=== PATIENT | male | born 1985 | race Caucasian/White ===

== ENCOUNTER 2016-12-13 21:48 | Emergency (ER) | payer BC ==
[~2016-12-13] VITALS: Ht 182.9 cm; Wt 70.0 kg
[~2016-12-13 21:48] MED LIST: FIORIC PO; IBUP800T23 PO; OXYB5TAB PO; PHEN-426 PO
[2016-12-13 21:50] VITALS: BP 125/81; PULSE 93; RESP 16; TEMP 99.1; O2SAT 99
[2016-12-13] MEDS ORDERED: SODIUM CHLOR 0.9% 1000 ML INJ 1,000 ML IV SCH (22:10)
[2016-12-13] MEDS ORDERED: SODIUM CHLORIDE 0.9% FLUSH 10 ML FLUSH IV FLUSH PRN (22:15)
[2016-12-13] MEDS ORDERED: ONDANSETRON HCL 4 MG/2 ML VIAL IVP ONE (22:15)
[2016-12-13] MEDS ORDERED: SODIUM CHLOR 0.9% 1000 ML INJ 1,000 ML IV ONE (22:15)
[2016-12-13 22:30] VITALS: O2SAT 98
[2016-12-13 22:41] LABS: AUTOMATED NEUTROPHIL # 10.4 TH/MM3 (1.8-7.7); BASOPHIL % 0.3 % (0.0-2.0); EOSINOPHIL % 0.1 % (0.0-4.0); HEMATOCRIT 46.2 % (39.0-51.0); HEMO FLAGS DIFF FINAL; LYMPH % 4.6 % (9.0-44.0); LYMPHOCYTE # 0.5 TH/MM3 (1.0-4.8); MEAN CELL VOLUME 87.8 FL (80.0-100.0); MEAN CORPUSCULAR HEMOGLOBIN 30.3 PG (27.0-34.0); MEAN CORPUSCULAR HGB CONC 34.6 % (32.0-36.0); MONO % 4.5 % (0.0-8.0); NEUT % 90.5 % (16.0-70.0); PLATELET COUNT 241 TH/MM3 (150-450); RED BLOOD COUNT 5.27 MIL/MM3 (4.50-5.90); RED CELL DISTRIBUTION WIDTH 13.2 % (11.6-17.2); WHITE BLOOD COUNT 11.5 TH/MM3 (4.0-11.0)
[2016-12-13 23:02] LABS: BICARBONATE 28.4 MEQ/L (21.0-32.0); POTASSIUM 3.9 MEQ/L (3.5-5.1)
[2016-12-13] MEDS ORDERED: ZOFR4TAB3 SL (23:37)
--- NOTE | 2016-12-13 23:37 | PD ---
HPI Chief Complaint: GI Complaint Time Seen by Provider: 22:07 Travel History International Travel<30 days: No Contact w/Intl Traveler<30days: No Traveled to known affect area: No History of Present Illness HPI 31-year-old male came to the emergency room with moderate distress due to vomiting and diarrhea that's been going on for past 24 hours. His friend brought him to the emergency room. Patient says he feels very weak. He could not stop vomiting or diarrhea in the last episode was while he was in the waiting room. He says it's mostly water. No blood in stool or the vomit. No known sick contacts. He is otherwise a healthy person. As per the friend he has been working very hard the past couple days in warm weather. Vital signs were relatively stable. [facility] Past Medical History Narrative Medical List of his past medical, surgical, social and family history as reviewed from the nursing note. Blood Disorders: No Cancer: No Cardiovascular Problems: No Diminished Hearing: No Endocrine: No Gastrointestinal Disorders: Yes (GERD) GERD: Yes Genitourinary: Yes (kidney stones ) Immune Disorder: No Implanted Vascular Access Dvce: Yes Kidney Stones: Yes (RENAL STENT) Musculoskeletal: Yes (left ankle surgery ) Neurologic: No Psychiatric: No Reproductive: No Respiratory: No Immunizations Current: No Migraines: Yes Past Surgical History Appendectomy: Yes Body Medical Devices: pins/screws left ankle Other Surgery: Yes (appy, left ankle) Social History Alcohol Use: Yes (socially) Tobacco Use: No Substance Use: Yes (marijuana--once weekly ) Allergies-Medications (Allergen,Severity, Reaction): Coded Allergies: No Known Allergies (Verified , 12/14/16) Comments List of his allergies reviewed from the nursing note. Reported Meds & Prescriptions Reported Meds & Active Scripts Active Zofran Odt (Ondansetron Odt) 4 Mg Tab 4 Mg SL Q6HR PRN Narrative Medication List of his home medications reviewed from the nursing note. Review of Systems Except as stated in HPI: all other systems reviewed are Neg Physical Exam Narrative GENERAL: Awake, alert, moderate distress SKIN: Focused skin assessment warm/dry. HEAD: Atraumatic. Normocephalic. EYES: Pupils equal and round. No scleral icterus. No injection or drainage. ENT: No nasal bleeding or discharge. Dry mucous membrane and coated tongue NECK: Trachea midline. No JVD. CARDIOVASCULAR: Regular rate and rhythm. No murmur appreciated. RESPIRATORY: No accessory muscle use. Clear to auscultation. Breath sounds equal bilaterally. GASTROINTESTINAL: Abdomen soft, non-tender, nondistended. Hepatic and splenic margins not palpable. MUSCULOSKELETAL: No obvious deformities. No clubbing. No cyanosis. No edema. NEUROLOGICAL: Awake and alert. No obvious cranial nerve deficits. Motor grossly within normal limits. Normal speech. PSYCHIATRIC: Appropriate mood and affect; insight and judgment normal. Data Data Last Documented VS Orders Orders Basic Metabolic Panel (Bmp) (12/13/16 22:10) Complete Blood Count With Diff (12/13/16 22:10) Urinalysis - C+S If Indicated (12/13/16 22:10) Iv Access Insert/Monitor (12/13/16 22:10) Ecg Monitoring (12/13/16 22:10) Oximetry (12/13/16 22:10) Ondansetron Inj (Zofran Inj) (12/13/16 22:15) Sodium Chlor 0.9% 1000 Ml Inj (Ns 1000 M (12/13/16 22:10) Sodium Chloride 0.9% Flush (Ns Flush) (12/13/16 22:15) Sodium Chlor 0.9% 1000 Ml Inj (Ns 1000 M (12/13/16 22:15) C Diff Toxin Pcr (12/13/16 22:13) Labs Laboratory Tests Test 12/13/16 22:20 12/13/16 23:25 12/13/16 23:40 White Blood Count 11.5 TH/MM3 Red Blood Count 5.27 MIL/MM3 Hemoglobin 16.0 GM/DL Hematocrit 46.2 % Mean Corpuscular Volume 87.8 FL Mean Corpuscular Hemoglobin 30.3 PG Mean Corpuscular Hemoglobin Concent 34.6 % Red Cell Distribution Width 13.2 % Platelet Count 241 TH/MM3 Mean Platelet Volume 8.7 FL Neutrophils (%) (Auto) 90.5 % Lymphocytes (%) (Auto) 4.6 % Monocytes (%) (Auto) 4.5 % Eosinophils (%) (Auto) 0.1 % Basophils (%) (Auto) 0.3 % Neutrophils # (Auto) 10.4 TH/MM3 Lymphocytes # (Auto) 0.5 TH/MM3 Monocytes # (Auto) 0.5 TH/MM3 Eosinophils # (Auto) 0.0 TH/MM3 Basophils # (Auto) 0.0 TH/MM3 CBC Comment DIFF FINAL Differential Comment Blood Urea Nitrogen 15 MG/DL Creatinine 1.23 MG/DL Random Glucose 107 MG/DL Calcium Level 9.1 MG/DL Sodium Level 138 MEQ/L Potassium Level 3.9 MEQ/L Chloride Level 100 MEQ/L Carbon Dioxide Level 28.4 MEQ/L Anion Gap 10 MEQ/L Estimat Glomerular Filtration Rate 68 ML/MIN Urine Color LIGHT-YELLOW Urine Turbidity CLEAR Urine pH 8.0 Urine Specific [place] 1.010 Urine Protein NEG mg/dL Urine Glucose (UA) NEG mg/dL Urine Ketones 40 mg/dL Urine Occult Blood NEG Urine Nitrite NEG Urine Bilirubin NEG Urine Urobilinogen LESS THAN 2.0 MG/DL Urine Leukocyte Esterase NEG Urine RBC LESS THAN 1 /hpf Urine WBC 1 /hpf Urine Mucus FEW /lpf Microscopic Urinalysis Comment CULT NOT INDICATED Stool C. difficile Toxin (PCR) NEGATIVE Stl C. difficile Toxin Epiderm 027 PRESUMPTIVE NEGATIVE MDM Medical Decision Making Medical Screen Exam Complete: Yes Emergency Medical Condition: Yes Medical Record Reviewed: Yes Differential Diagnosis Acute gastroenteritis, food poisoning, dehydration Narrative Course 11:35 PM blood test results are back and they're within acceptable limits. Patient was given 2 L of IV fluid bolus and IV Zofran. He has not had anymore diarrhea or vomiting episode as far as I know. However the stool C. difficile has been ordered. I am comfortable discharging him home at this point. Procedures EKG Prior to Arrival: No Diagnosis Primary Impression: Acute gastroenteritis Additional Impression: Dehydration Referrals: Primary Care Physician Additional Instructions: Return to the ER if the condition worsens or any other new concerns. Take the medication as per the prescription direction. Try to stay hydrated as much as possible. Med/Other Pt SpecificInfo: Prescription(s) given Scripts Ondansetron Odt (Zofran Odt) 4 Mg Tab 4 MG SL Q6HR Y for Nausea/Vomiting, #10 TAB 0 Refills Prov: Oliva Pugh MD 12/13/16 Disposition: 01 DISCHARGE HOME Condition: Stable Oliva Pugh MD Dec 13, 2016 23:37
[2016-12-14 00:16] LABS: BLOOD, URINE NEG (NEG); COMMENT (UR) CULT NOT INDICATED; CULTURE IF INDICATED CULT NOT INDICATED; GLUCOSE,URINE NEG (NEG); KETONE, URINE 40 mg/dL (NEG); MUCUS URINE FEW /lpf (OCC); NITRITE,URINE NEG (NEG); URINE COLOR LIGHT-YELLOW (YELLW/STRAW)
[2016-12-14 00:45] LABS: C. DIFF EPI 027 PRESUMPTIVE NEGATIVE (NEGATIVE)
== END 2016-12-13 23:48 | disposition home or self-care (01) ==
LOC: NEPC 21:48
DX: K52.9 Noninfective gastroenteritis and colitis, unspecified (principal); E86.0 Dehydration
CPT/HCPCS: 80048; 81001; 85025; 87493; 96361; 96374; 99284; J2405; J7030

== ENCOUNTER 2016-12-14 06:36 | Emergency (ER) | payer BC ==
[~2016-12-14] VITALS: Ht 182.9 cm; Wt 70.0 kg
[~2016-12-14 06:36] MED LIST changes: -FIORIC PO; -IBUP800T23 PO; -OXYB5TAB PO; -PHEN-426 PO; +ZOFR4TAB3 SL
[2016-12-14 06:37] VITALS: BP 121/79; PULSE 81; RESP 16; TEMP 98.4; O2SAT 98
[2016-12-14] MEDS ORDERED: SODIUM CHLOR 0.9% 1000 ML INJ 1,000 ML IV ONE (07:45)
[2016-12-14] MEDS ORDERED: METOCLOPRAMIDE INJ 10 MG in SODIUM CHLORIDE 0.9% INJ 50 ML IV ONE (07:45)
[2016-12-14 07:57] LABS: BLOOD, URINE NEG (NEG); GLUCOSE,URINE NEG (NEG); KETONE, URINE 40 mg/dL (NEG); MUCUS URINE FEW /lpf (OCC); NITRITE,URINE NEG (NEG); PH, URINE 6.5 (5.0-8.5); URINE COLOR YELLOW (YELLW/STRAW)
[2016-12-14 07:59] LABS: COMMENT (UR) CULT NOT INDICATED; CULTURE IF INDICATED CULT NOT INDICATED
[2016-12-14] MEDS ORDERED: diphenhydrAMINE HCL 50 MG/ML VIAL IV PUSH ONE (09:00)
--- NOTE | 2016-12-14 09:59 | PD ---
HPI Chief Complaint: GI Complaint Time Seen by Provider: 07:11 Travel History International Travel<30 days: No Contact w/Intl Traveler<30days: No Traveled to known affect area: No History of Present Illness HPI Patient is a 31 year old male who comes in complaining of nausea, vomiting, diarrhea. He says this started yesterday at 5:30. He was seen here last night and was given IV fluids as well as Zofran. He was discharged with a prescription for Zofran, but has not been able to get it filled yet. He says he then started dry heaving and having more diarrhea, so he came back. Denies any abdominal pain. He has been feeling warm, but has not had a fever. He had labs done overnight that showed no acute abnormalities. PFSH Past Medical History Blood Disorders: No Cancer: No Cardiovascular Problems: No Diminished Hearing: No Endocrine: No Gastrointestinal Disorders: Yes (GERD) GERD: Yes Genitourinary: Yes (kidney stones ) Immune Disorder: No Implanted Vascular Access Dvce: Yes Kidney Stones: Yes (RENAL STENT) Musculoskeletal: Yes (left ankle surgery ) Neurologic: No Psychiatric: No Reproductive: No Respiratory: No Immunizations Current: No Migraines: Yes Past Surgical History Appendectomy: Yes Body Medical Devices: pins/screws left ankle Other Surgery: Yes (appy, left ankle) Social History Alcohol Use: Yes (socially) Tobacco Use: No Substance Use: Yes (marijuana--once weekly ) Allergies-Medications (Allergen,Severity, Reaction): Coded Allergies: No Known Allergies (Verified , 12/14/16) Reported Meds & Prescriptions Reported Meds & Active Scripts Active Zofran Odt (Ondansetron Odt) 4 Mg Tab 4 Mg SL Q6HR PRN Review of Systems Except as stated in HPI: all other systems reviewed are Neg General / Constitutional: No: Fever, Chills HENT: No: Headaches, Lightheadedness Cardiovascular: No: Chest Pain or Discomfort Respiratory: No: Shortness of Breath Gastrointestinal: Positive: Nausea, Vomiting, Diarrhea, No: Abdominal Pain Genitourinary: No: Dysuria Musculoskeletal: No: Myalgias, Arthralgias Skin: No Rash, No Change in Pigmentation Neurologic: No: Weakness, Dizziness Physical Exam Narrative GENERAL: Awake and alert, in no acute distress. SKIN: Focused skin assessment warm/dry. HEAD: Atraumatic. Normocephalic. EYES: Pupils equal and round. No scleral icterus. ENT: Mucous membranes pink and moist. NECK: Trachea midline. No JVD. CARDIOVASCULAR: Regular rate and rhythm. No murmur appreciated. RESPIRATORY: No accessory muscle use. Clear to auscultation. Breath sounds equal bilaterally. GASTROINTESTINAL: Abdomen soft, non-tender, nondistended. MUSCULOSKELETAL: No obvious deformities. No clubbing. No cyanosis. No edema. NEUROLOGICAL: Awake and alert. No obvious cranial nerve deficits. Motor grossly within normal limits. Normal speech. PSYCHIATRIC: Appropriate mood and affect; insight and judgment normal. Data Data Last Documented VS Vital Signs Date Time Temp Pulse Resp B/P (MAP) Pulse Ox O2 Delivery O2 Flow Rate FiO2 12/14/16 06:37 98.4 81 16 121/79 (93) 98 Room Air Orders Orders Urinalysis - C+S If Indicated (12/14/16 07:34) Iv Access Insert/Monitor (12/14/16 07:34) Sodium Chlor 0.9% 1000 Ml Inj (Ns 1000 M (12/14/16 07:45) Metoclopramide Inj (Reglan Inj) (12/14/16 07:45) Diphenhydramine Inj (Benadryl Inj) (12/14/16 09:00) Labs Laboratory Tests Test 12/14/16 07:45 Urine Color YELLOW Urine Turbidity CLEAR Urine pH 6.5 Urine Specific [place] 1.018 Urine Protein NEG mg/dL Urine Glucose (UA) NEG mg/dL Urine Ketones 40 mg/dL Urine Occult Blood NEG Urine Nitrite NEG Urine Bilirubin NEG Urine Urobilinogen LESS THAN 2.0 MG/DL Urine Leukocyte Esterase NEG Urine RBC 1 /hpf Urine WBC 1 /hpf Urine Mucus FEW /lpf Microscopic Urinalysis Comment CULT NOT INDICATED MDM Medical Decision Making Medical Screen Exam Complete: Yes Emergency Medical Condition: Yes Medical Record Reviewed: Yes Differential Diagnosis Gastroenteritis versus UTI versus gastritis Narrative Course Patient is a 31-year-old male comes in complaining of nausea, vomiting, diarrhea. He was seen a few hours ago and labs are done that showed no acute abnormalities. Urinalysis done now shows no acute issues. Patient given another liter of fluids. Given Reglan and Benadryl. He reports feeling better. He is advised to go home and drink plenty of fluids, eat a bland diet. Advised to fill his prescription for Zofran. Advised to return to the ED as needed for any worsening symptoms. Diagnosis Primary Impression: Gastroenteritis Patient Instructions: Acute Nausea and Vomiting (ED), General Instructions Additional Instructions: Drink plenty of fluids. Only eat a few her feeling hungry and then eat a very bland diet. Take Zofran as needed for nausea. Follow-up with your doctor. Return to the ED as needed for any worsening symptoms. Disposition: 01 DISCHARGE HOME Condition: Stable Susie Matthew MD Dec 14, 2016 09:59
== END 2016-12-14 11:15 | disposition home or self-care (01) ==
LOC: NEPC 06:36
DX: K52.9 Noninfective gastroenteritis and colitis, unspecified (principal); K21.9 Gastro-esophageal reflux disease without esophagitis; Z87.442 Personal history of urinary calculi; Z79.899 Other long term (current) drug therapy
CPT/HCPCS: 81001; 96361; 96365; 96375; 99284; J1200; J2765; J7030